=== PATIENT | female | born 1935 | race Caucasian/White ===

== ENCOUNTER → 2016-04-20 | Outpatient (CLI) | payer MEDICARE, OTHER ==
[~2016-04-20] VITALS: Ht 170.2 cm; Wt 81.6 kg
== END ==
LOC: OPSV 13:00
DX: D50.9 Iron deficiency anemia, unspecified (principal)
CPT/HCPCS: 96365; 96366; J1756; J7030

== ENCOUNTER 2021-07-31 18:00 | Emergency (ER) | payer MEDICARE, OTHER ==
[2021-07-31 20:47] LABS: HEMOGLOBIN 10.7 gm/dl (12.3-15.3); RED BLOOD COUNT 3.35 M/UL (4.00-5.10); WHITE BLOOD COUNT 9.2 K/UL (4.5-11.0)
[2021-07-31] MEDS ORDERED: CEPHALEXIN500 M1 PO (22:20)
== END 2021-07-31 23:04 | disposition home or self-care (01) ==
LOC: ER1 18:00
PROVIDERS: Physician Assistant
DX: R42 Dizziness and giddiness (principal); S16.1XXA Strain of muscle, fascia and tendon at neck level, initial encounter; S39.012A Strain of muscle, fascia and tendon of lower back, initial encounter; S29.012A Strain of muscle and tendon of back wall of thorax, initial encounter; S93.402A Sprain of unspecified ligament of left ankle, initial encounter; S93.401A Sprain of unspecified ligament of right ankle, initial encounter; S93.602A Unspecified sprain of left foot, initial encounter; S93.601A Unspecified sprain of right foot, initial encounter; S40.011A Contusion of right shoulder, initial encounter; I12.9 Hypertensive chronic kidney disease with stage 1 through stage 4 chronic kidney disease, or unspecified chronic kidney disease; N18.9 Chronic kidney disease, unspecified; E11.22 Type 2 diabetes mellitus with diabetic chronic kidney disease; Z88.6 Allergy status to analgesic agent; W19.XXXA Unspecified fall, initial encounter; Y92.009 Unspecified place in unspecified non-institutional (private) residence as the place of occurrence of the external cause
CPT/HCPCS: 70450; 71045; 72125; 72128; 72131; 72170; 73030; 73610; 73630; 80053; 81001; 82550; 82553; 84484; 85025; 87077; 87086; 87186; 93005; 99284

== ENCOUNTER → 2021-08-24 | Outpatient (CLI) | payer MEDICARE, OTHER ==
[~2021-08-24] MED LIST: CEPHALEXIN500 M1 PO
== END ==
LOC: US 14:21
DX: M25.561 Pain in right knee (principal); M79.661 Pain in right lower leg; M79.89 Other specified soft tissue disorders; M21.961 Unspecified acquired deformity of right lower leg
CPT/HCPCS: 73562; 93971

== ENCOUNTER 2021-08-26 00:14 | Inpatient (IN) | payer MEDICARE, OTHER ==
[~2021-08-26] VITALS: Ht 167.6 cm; Wt 72.6 kg
[2021-08-26 01:56] LABS: RED BLOOD COUNT 2.82 M/UL (4.00-5.10); WHITE BLOOD COUNT 8.2 K/UL (4.5-11.0)
[2021-08-26] MEDS ORDERED: NORVASC10 MG PO (10:45)
[2021-08-26] MEDS ORDERED: OMEPRAZOLE40 MG PO (10:46)
[2021-08-26] MEDS ORDERED: HYDRALAZINE HCL10 MG PO (10:46)
[2021-08-26] MEDS ORDERED: LATANOPROST2.5 ML OU (10:46)
[2021-08-26] MEDS ORDERED: COREG12.5 MG PO (10:47)
[2021-08-26] MEDS ORDERED: JANUVIA25 MG PO (10:47)
[2021-08-26] MEDS ORDERED: ESCITALOPRAM OXA5 MG PO (10:47)
[2021-08-26] MEDS ORDERED: ASPIRIN EC81 MG PO (10:47)
[2021-08-27 02:14] LABS: HEMOGLOBIN 7.9 gm/dl (12.3-15.3)
[2021-08-27 02:17] LABS: RED BLOOD COUNT 2.46 M/UL (4.00-5.10); WHITE BLOOD COUNT 11.6 K/UL (4.5-11.0)
[2021-08-28] MEDS ORDERED: MELATONIN3 MG PO (11:55)
[2021-08-28] MEDS ORDERED: HYDROCODON-ACE1 EAC4 PO (11:55)
[2021-08-28] MEDS ORDERED: OMEPRAZOLE40 MG PO (11:55)
== END 2021-08-28 14:53 | DRG 562 ==
LOC: ER1 00:14 → CDU 02:48 → M/S 09:05
PROVIDERS: Family Medicine; Internal Medicine; ADMIT Internal Medicine
DX: S82.141A Displaced bicondylar fracture of right tibia, initial encounter for closed fracture (principal); J96.01 Acute respiratory failure with hypoxia; N18.4 Chronic kidney disease, stage 4 (severe); N30.00 Acute cystitis without hematuria; Z20.822 Contact with and (suspected) exposure to COVID-19; R29.6 Repeated falls; I12.9 Hypertensive chronic kidney disease with stage 1 through stage 4 chronic kidney disease, or unspecified chronic kidney disease; E88.09 Other disorders of plasma-protein metabolism, not elsewhere classified; E83.41 Hypermagnesemia; S82.451A Displaced comminuted fracture of shaft of right fibula, initial encounter for closed fracture; W18.30XA Fall on same level, unspecified, initial encounter; D75.89 Other specified diseases of blood and blood-forming organs; E11.22 Type 2 diabetes mellitus with diabetic chronic kidney disease; Z79.4 Long term (current) use of insulin; Z98.891 History of uterine scar from previous surgery
CPT/HCPCS: 29505; 36415; 36600; 70450; 71045; 73564; 73590; 73700; 78580; 80048; 80053; 81001; 82550; 82553; 82607; 82746; 82803; 82962; 83036; 83605; 83690; 83735; 83880; 84439; 84443; 84484; 85025; 85610; 85730; 87040; 93005; 93971; 96374; 99285; A9540; J0696; J1644; J2270; U0002

== ENCOUNTER 2021-08-31 20:21 | Inpatient (IN) | payer MEDICARE, OTHER ==
[~2021-08-31] VITALS: Ht 170.2 cm; Wt 65.0 kg
[~2021-08-31 20:21] MED LIST changes: +ASPIRIN EC81 MG PO; +COREG12.5 MG PO; +ESCITALOPRAM OXA5 MG PO; +HYDRALAZINE HCL10 MG PO; +HYDROCODON-ACE1 EAC4 PO; +JANUVIA25 MG PO; +LATANOPROST2.5 ML OU; +MELATONIN3 MG PO; +NORVASC10 MG PO; +OMEPRAZOLE40 MG PO
[2021-08-31 21:32] LABS: HEMOGLOBIN 8.1 gm/dl (12.3-15.3); RED BLOOD COUNT 2.54 M/UL (4.00-5.10); WHITE BLOOD COUNT 8.8 K/UL (4.5-11.0)
[2021-09-01 09:40] LABS: HEMOGLOBIN 8.2 gm/dl (12.3-15.3); RED BLOOD COUNT 2.59 M/UL (4.00-5.10); WHITE BLOOD COUNT 9.7 K/UL (4.5-11.0)
[2021-09-02 04:35] LABS: RED BLOOD COUNT 2.15 M/UL (4.00-5.10); WHITE BLOOD COUNT 7.2 K/UL (4.5-11.0)
[2021-09-02 04:37] LABS: HEMOGLOBIN 6.9 gm/dl (12.3-15.3)
[2021-09-03 03:25] LABS: HEMOGLOBIN 8.1 gm/dl (12.3-15.3)
[2021-09-03 03:35] LABS: RED BLOOD COUNT 2.6 M/UL (4.00-5.10)
[2021-09-04 02:05] LABS: HEMOGLOBIN 9.3 gm/dl (12.3-15.3); WHITE BLOOD COUNT 10.9 K/UL (4.5-11.0)
[2021-09-04] MEDS ORDERED: MEROPENEM500 MG IV (10:46)
[2021-09-04] MEDS ORDERED: NORMAL SALINE IV (10:46)
[2021-09-04] MEDS ORDERED: ATIVAN0.5 MG PO (11:06)
[2021-09-04] MEDS ORDERED: FERROUS GLUCON324 M1 PO (11:06)
[2021-09-04] MEDS ORDERED: PROTONIX 40 MG40 M1 PO (11:06)
[2021-09-04] MEDS ORDERED: ZOFRAN 4 MG TAB4 MG PO (11:16)
== END 2021-09-04 14:53 | DRG 177 ==
LOC: ER1 20:21 → CDU 09-01 03:09 → M/S 09-01 03:09 → CDU 09-01 03:09 → M/S 09-01 03:09
PROVIDERS: Family Medicine; Internal Medicine; ADMIT Internal Medicine
PROC: 30233N1 Transfusion of Nonautologous Red Blood Cells into Peripheral Vein, Percutaneous Approach (ICD-10-PCS; principal; 2021-09-02)
DX: J69.0 Pneumonitis due to inhalation of food and vomit (principal); E43 Unspecified severe protein-calorie malnutrition; N17.9 Acute kidney failure, unspecified; E87.0 Hyperosmolality and hypernatremia; E87.2 Acidosis; N30.00 Acute cystitis without hematuria; I12.0 Hypertensive chronic kidney disease with stage 5 chronic kidney disease or end stage renal disease; N18.5 Chronic kidney disease, stage 5; N13.30 Unspecified hydronephrosis; R53.81 Other malaise; R33.8 Other retention of urine; D63.1 Anemia in chronic kidney disease; E11.22 Type 2 diabetes mellitus with diabetic chronic kidney disease; H40.9 Unspecified glaucoma; K21.9 Gastro-esophageal reflux disease without esophagitis; R62.7 Adult failure to thrive; F32.A Depression, unspecified; F41.9 Anxiety disorder, unspecified; R13.10 Dysphagia, unspecified; Z66 Do not resuscitate; E86.0 Dehydration; D50.9 Iron deficiency anemia, unspecified; E88.09 Other disorders of plasma-protein metabolism, not elsewhere classified; Z51.5 Encounter for palliative care; Z79.899 Other long term (current) drug therapy; Z98.890 Other specified postprocedural states; Z88.8 Allergy status to other drugs, medicaments and biological substances; Z68.27 Body mass index [BMI] 27.0-27.9, adult
CPT/HCPCS: 36415; 36430; 71045; 74230; 76856; 80048; 80053; 81001; 82550; 82553; 82607; 82728; 82803; 82962; 83540; 83550; 84439; 84443; 84484; 85014; 85018; 85025; 85027; 86850; 86900; 86901; 86920; 87086; 92526; 92610; 92611-GN; 96365; 96372; 96375; 96376; 97161; 97530-GP-CQ; 99285; G0378; J0295; J1644; J2185; J2405; J2543; P9016; Q4081